=== PATIENT | female | born 1980 | race Caucasian/White ===

== ENCOUNTER 2017-03-23 08:26 | Day surgery (SDC) | payer SELFPAY ==
[~2017-03-23] VITALS: Ht 162.6 cm
--- NOTE | 2017-03-25 08:52 | OR ---
ADMIT: 03/23/2017 RM/LOC: [facility] MR#: [id number] [address] [place] [id number] RALPH [place] [address] Operative/Delivery Room Report SEX: F AGE: 36 : 1980 SURGERY DATE: 03/23/2017 SURGEON: Airam Lipscomb MD ANNUAL GIVING OFFICER: None. PREPROCEDURE DIAGNOSIS: Bilateral sacroiliac joint dysfunction. POSTPROCEDURE DIAGNOSIS: Bilateral sacroiliac joint dysfunction. PROCEDURE PERFORMED: Bilateral sacroiliac joint injection. INDICATIONS FOR PROCEDURE: The patient is a pleasant female with history of chronic low back pain secondary to above-mentioned diagnoses comes here for planned bilateral SI joint injection. ANESTHESIA: Local without sedation. ESTIMATED BLOOD LOSS: Zero. COMPLICATIONS: None immediately evident. DESCRIPTION OF PROCEDURE: After the patient was seen in the preoperative area, vitals signs were taken. Prior to the procedure, the risks, benefits, and alternative therapies were discussed at length. Patient consent was obtained and updated. The patient was taken to the fluoroscopy suite and placed on the fluoroscopy table in the prone position. Pressure points were padded to comfort, monitors applied, and a timeout performed. C-arm was brought in to identify the right SI joint. Lidocaine plain 1%, approximately 2 mL, was used to anesthetize the skin and underlying subcutaneous tissue. A 3.5-inch 22-gauge curved-tip needle was then advanced through the anesthetized skin and placed inside the inferior portion of the SI joint. Isovue-300 was injected into the SI joint and showed good spread into ADMIT: 03/23/2017 RM/LOC: [facility] MR#: [id number] [address] [place] [id number] RALPH MEHTA [address] [place] [address] Operative/Delivery Room Report SEX: F AGE: 36 : 1980 the SI joint. After correct placement was confirmed, 5 mL of 0.25% Marcaine and 40 mg of Depo-Medrol were injected. The procedure was then repeated on the left. The patient tolerated the procedure well without any complications. The patient was then brought to PACU where she recovered nicely. PLAN: The patient was examined after 20 minutes and had 50% reduction of pain. Discharge instructions were given, followup scheduled. The patient was discharged home with a lead driver. Airam Lipscomb MD/ missy JOB #: [id number] CC: Airam Lipscomb, Attending Physician FAMILY PHYSICIAN, Family Physician
== END 2017-03-23 10:03 | disposition home or self-care (01) ==
LOC: SSS 08:26
PROC: 3E0U3BZ Introduction of Anesthetic Agent into Joints, Percutaneous Approach (ICD-10-PCS; principal; 2017-03-23)
PROC: 3E0U33Z Introduction of Anti-inflammatory into Joints, Percutaneous Approach (ICD-10-PCS; principal; 2017-03-23)
DX: G89.29 Other chronic pain (principal); M53.3 Sacrococcygeal disorders, not elsewhere classified; M51.17 Intervertebral disc disorders with radiculopathy, lumbosacral region; M47.26 Other spondylosis with radiculopathy, lumbar region; Z90.710 Acquired absence of both cervix and uterus; Z96.642 Presence of left artificial hip joint; Z79.899 Other long term (current) drug therapy